=== PATIENT | male | born 1955 | race Two or more races ===

== ENCOUNTER 2017-03-15 08:39 | Inpatient (IN) | payer BC ==
[~2017-03-15] VITALS: Ht 167.6 cm; Wt 74.4 kg
[2017-03-15 09:20] LABS: Basophils # (auto) 0 uL; Basophils % (auto) 0.6 % (0.0-2.0); CONDITION Y; Eosinophils # (auto) 0.2 uL; Eosinophils % (auto) 4.5 % (0.0-7.0); Hematocrit 48.2 % (41.0-53.0); Hemoglobin 16.1 g/dL (13.5-17.5); Lymphocytes # (auto) 1.1 uL; Lymphocytes % (auto) 19.8 % (10.0-50.0); Mean Corpuscular Hgb Conc. 33.3 g/dL (32.0-36.0); Mean Platelet Volume 7.1 fL (7.4-10.4); Monocytes # (auto) 0.5 uL; Monocytes % (auto) 8.4 % (0.0-12.0); Neutrophils # (auto) 3.6 uL; Neutrophils % (auto) 66.7 % (37.0-80.0); Platelet Count (auto) 272 10^3/uL (140-450); Red Cell Distribution Width 13.6 % (11.6-16.0); White Blood Cell 5.4 10^3/uL (4.4-10.8)
[2017-03-15 09:27] LABS: Urine Bilirubin Negative (Negative); Urine Blood Negative /uL (Negative); Urine Color Yellow (Yellow); Urine Glucose 4+ mg/dL (Normal); Urine Ketone TRACE (Negative); Urine Nitrite Negative (Negative); Urine RBC 1 /hpf (0 - 3); Urine Squamous Epithelial Cell FEW /hpf (<5); Urine Urobilinogen Normal (Negative); Urine pH 5.5 (5.0-8.0)
[2017-03-15 09:53] LABS: Albumin 4.1 g/dL (3.4-5.0); Alkaline Phosphatase 70 U/L (45-117); Anion Gap 12 (5-15); Aspartate Aminotransferase 20 U/L (15-37); BUN/Creatinine Ratio 13.6; Bilirubin, Total 0.5 mg/dL (0.2-1.0); Blood Urea Nitrogen 14 mg/dL (7-18); Calcium 8.8 mg/dL (8.5-10.1); Carbon Dioxide 23 mmol/L (21-32); Chloride 102 mmol/L (98-107); GFR African American 95 mL/min; GFR Non-African American 78 mL/min; Glucose 194 mg/dL (74-106); Magnesium 2.4 mg/dL (1.6-2.6); Potassium 4.4 mmol/L (3.5-5.1); Sodium 137 mmol/L (136-145); Total Protein 7.7 g/dL (6.4-8.2)
[2017-03-15] MEDS ORDERED: LORazepam 0.5 MG TAB PO PRN (12:45)
[2017-03-15] MEDS ORDERED: ZOLPIDEM TARTRATE 5 MG TAB PO PRN (12:45)
[2017-03-15] MEDS ORDERED: ALUM & MAG HYDROX-SIMETH LIQ(MAALOX) 30 ML PO ONE (12:45)
[2017-03-15] MEDS ORDERED: DEXTROSE (50%) 50ML SYRG IV PRN (12:45)
[2017-03-15] MEDS ORDERED: ONDANSETRON HCL 4 MG/2 ML VIAL IV PRN (12:45)
[2017-03-15] MEDS ORDERED: MORPHINE SULF INJ 2 MG/ML SYRINGE 1ML IV PRN ×2 (12:45)
[2017-03-15] MEDS ORDERED: NITROGLYCERIN 0.4 MG SL TAB SL PRN ×2 (12:45)
[2017-03-15] MEDS ORDERED: CLOPIDOGREL BISULFATE 75 MG TAB PO ONE (13:00)
[2017-03-15] MEDS ORDERED: ENALAPRIL MALEATE 2.5 MG TAB PO ONE (13:00)
[2017-03-15] MEDS ORDERED: DOCUSATE SOD 100 MG CAP PO ONE (13:00)
[2017-03-15] MEDS ORDERED: CARVEDILOL 3.125 MG TAB PO ONE (13:00)
[2017-03-15] MEDS ORDERED: ASPirin 81 mg TAB PO ONE (13:00)
[2017-03-15 13:07] LABS: B-Type Natriuretic Peptide 9.53 pg/mL (0-100)
[2017-03-15 13:09] LABS: Temperature: 24.1 C (20.0-25.0)
[2017-03-15] MEDS ORDERED: FAMOTIDINE (10MG/ML) 2ML VL IV ONE (13:45)
[2017-03-15] MEDS: SODIUM CHLOR 0.9% PF (SALINE LOCK) 10ML VIAL IV SCH ×2 (14:02→21:55)
[2017-03-15 15:00] VITALS: BP 104/64
[2017-03-15 15:43] VITALS: BP 104/64
[2017-03-15] MEDS ORDERED: SIMV-8 PO (16:18)
[2017-03-15] MEDS ORDERED: OMEP20CA74 PO (16:19)
[2017-03-15] MEDS ORDERED: LISI2.5T47 PO (16:19)
[2017-03-15] MEDS ORDERED: CANA100T OR (16:21)
[2017-03-15] MEDS ORDERED: METF-370 PO (16:21)
[2017-03-15] MEDS ORDERED: INSU70IN3 SC (16:22)
[2017-03-15 17:00] VITALS: BP 97/60
[2017-03-15] MEDS: InsuLIN REG 1unit/0.01ml Soln (100units/ml) SC SCH ×2 (17:00→22:00)
[2017-03-15] MEDS: ACCU-CHEK COMFORT CURVE STRIP VI SCH ×2 (17:26→21:56)
[2017-03-15] MEDS: INSULIN 70/30 1unit/0.01ml Susp (100units/ml) SC SCH (18:10)
[2017-03-15] MEDS: ACETAMINOPHEN 325 MG TAB PO PRN (20:15)
[2017-03-15 21:38] VITALS: BP 98/60
[2017-03-15] MEDS: ATORVASTATIN 20 MG TAB PO SCH (21:55)
[2017-03-15] MEDS: ENALAPRIL MALEATE 2.5 MG TAB PO SCH (21:56)
[2017-03-15] MEDS ORDERED: CARVEDILOL 3.125 MG TAB PO SCH (22:00)
[2017-03-16 04:34] VITALS: BP 100/63
[2017-03-16 05:47] LABS: Basophils # (auto) 0 uL; Basophils % (auto) 0.5 % (0.0-2.0); CONDITION Y; Eosinophils # (auto) 0.2 uL; Eosinophils % (auto) 3.3 % (0.0-7.0); Hematocrit 45.9 % (41.0-53.0); Lymphocytes # (auto) 1.5 uL; Lymphocytes % (auto) 27.1 % (10.0-50.0); Mean Corpuscular Hemoglobin 27.9 pg (28.0-32.0); Mean Corpuscular Hgb Conc. 32.6 g/dL (32.0-36.0); Mean Corpuscular Volume 85.5 fL (80.0-100.0); Mean Platelet Volume 7.2 fL (7.4-10.4); Monocytes # (auto) 0.6 uL; Monocytes % (auto) 11.6 % (0.0-12.0); Neutrophils # (auto) 3.1 uL; Neutrophils % (auto) 57.5 % (37.0-80.0); Platelet Count (auto) 251 10^3/uL (140-450); Red Cell Distribution Width 13.9 % (11.6-16.0); White Blood Cell 5.4 10^3/uL (4.4-10.8)
[2017-03-16 05:56] LABS: INR 1.02 (0.9-1.15); Prothrombin Time 11.1 sec (9.37-12.3)
[2017-03-16 06:23] LABS: Potassium 4.9 mmol/L (3.5-5.1)
[2017-03-16] MEDS: InsuLIN REG 1unit/0.01ml Soln (100units/ml) SC SCH ×4 (06:23→22:00)
[2017-03-16] MEDS: ACCU-CHEK COMFORT CURVE STRIP VI SCH ×4 (06:23→22:13)
[2017-03-16] MEDS: SODIUM CHLOR 0.9% PF (SALINE LOCK) 10ML VIAL IV SCH ×3 (06:23→22:13)
[2017-03-16 06:28] LABS: Albumin 3.6 g/dL (3.4-5.0); BUN/Creatinine Ratio 14.1; Calcium 8.7 mg/dL (8.5-10.1); Magnesium 2.6 mg/dL (1.6-2.6)
[2017-03-16 06:32] LABS: Bilirubin, Total 0.6 mg/dL (0.2-1.0); Total Protein 6.5 g/dL (6.4-8.2)
[2017-03-16] MEDS: INSULIN 70/30 1unit/0.01ml Susp (100units/ml) SC SCH ×2 (07:47→18:43)
[2017-03-16 08:34] VITALS: BP 94/60
[2017-03-16] MEDS: PANTOPRAZOLE 40 MG TAB PO SCH (09:27)
[2017-03-16] MEDS: ASPirin 81 mg TAB PO SCH (09:28)
[2017-03-16] MEDS: CANAGLIFLOZIN 100 MG PO SCH (09:28)
[2017-03-16] MEDS: DOCUSATE SOD 100 MG CAP PO SCH (09:28)
[2017-03-16] MEDS: ENALAPRIL MALEATE 2.5 MG TAB PO SCH ×2 (09:29→22:13)
[2017-03-16] MEDS: ACETAMINOPHEN 325 MG TAB PO PRN ×2 (09:32→16:36)
[2017-03-16] MEDS ORDERED: PATIENTS OWN MEDICATION PO SCH ×2 (10:00)
[2017-03-16] MEDS ORDERED: CLOPIDOGREL BISULFATE 75 MG TAB PO SCH (10:00)
[2017-03-16] MEDS ORDERED: FAMOTIDINE (10MG/ML) 2ML VL IV SCH (10:00)
[2017-03-16 12:18] VITALS: BP 103/63
[2017-03-16 17:05] VITALS: BP 114/73
[2017-03-16 22:00] VITALS: BP 121/72
[2017-03-16] MEDS: ATORVASTATIN 20 MG TAB PO SCH (22:13)
[2017-03-17] MEDS: ACCU-CHEK COMFORT CURVE STRIP VI SCH ×4 (06:02→22:08)
[2017-03-17] MEDS: InsuLIN REG 1unit/0.01ml Soln (100units/ml) SC SCH ×4 (06:02→22:00)
[2017-03-17] MEDS: SODIUM CHLOR 0.9% PF (SALINE LOCK) 10ML VIAL IV SCH ×3 (06:02→22:07)
[2017-03-17 07:44] LABS: Basophils # (auto) 0 uL; Basophils % (auto) 0.3 % (0.0-2.0); CONDITION Y; Eosinophils # (auto) 0.2 uL; Eosinophils % (auto) 3.1 % (0.0-7.0); Hematocrit 48.3 % (41.0-53.0); Lymphocytes # (auto) 1.4 uL; Lymphocytes % (auto) 23.4 % (10.0-50.0); Mean Corpuscular Hemoglobin 28.3 pg (28.0-32.0); Mean Corpuscular Hgb Conc. 33.2 g/dL (32.0-36.0); Mean Corpuscular Volume 85.3 fL (80.0-100.0); Monocytes # (auto) 0.6 uL; Monocytes % (auto) 9.2 % (0.0-12.0); Neutrophils # (auto) 3.9 uL; Platelet Count (auto) 274 10^3/uL (140-450); Red Cell Distribution Width 13.4 % (11.6-16.0); White Blood Cell 6.2 10^3/uL (4.4-10.8)
[2017-03-17 07:47] LABS: BUN/Creatinine Ratio 15.1; Potassium 4.3 mmol/L (3.5-5.1)
[2017-03-17 08:00] VITALS: BP 111/71
[2017-03-17] MEDS: INSULIN 70/30 1unit/0.01ml Susp (100units/ml) SC SCH ×2 (08:21→17:31)
[2017-03-17 09:00] VITALS: BP 111/71
[2017-03-17] MEDS: CANAGLIFLOZIN 100 MG PO SCH (10:00)
[2017-03-17] MEDS: DOCUSATE SOD 100 MG CAP PO SCH (11:03)
[2017-03-17] MEDS: ASPirin 81 mg TAB PO SCH (11:04)
[2017-03-17] MEDS: PANTOPRAZOLE 40 MG TAB PO SCH (11:04)
[2017-03-17] MEDS: ENALAPRIL MALEATE 2.5 MG TAB PO SCH ×2 (11:05→22:08)
[2017-03-17 12:24] VITALS: BP 107/70
[2017-03-17] MEDS: ACETAMINOPHEN 325 MG TAB PO PRN (16:00)
[2017-03-17 17:12] VITALS: BP 107/62
[2017-03-17 21:00] VITALS: BP 105/67
[2017-03-17] MEDS ORDERED: PANTOPRAZOLE 40 MG TAB PO SCH (22:00)
[2017-03-17] MEDS: ATORVASTATIN 20 MG TAB PO SCH (22:07)
[2017-03-18 05:00] VITALS: BP 96/59
[2017-03-18] MEDS: InsuLIN REG 1unit/0.01ml Soln (100units/ml) SC SCH (05:35)
[2017-03-18] MEDS: SODIUM CHLOR 0.9% PF (SALINE LOCK) 10ML VIAL IV SCH (05:35)
[2017-03-18] MEDS: ACCU-CHEK COMFORT CURVE STRIP VI SCH (05:35)
[2017-03-18 06:32] LABS: INR 1.03 (0.9-1.15); Partial Thromboplastin Time 28.3 sec (22.64-33.71); Prothrombin Time 11.2 sec (9.37-12.3)
[2017-03-18] MEDS: INSULIN 70/30 1unit/0.01ml Susp (100units/ml) SC SCH (08:00)
[2017-03-18] MEDS ORDERED: NALOXONE HCL 0.4 MG/ML VIAL ONE (08:57)
[2017-03-18] MEDS ORDERED: LIDOCAINE VISCOUS 2% 15ML UD ONE (08:57)
[2017-03-18] MEDS ORDERED: SODIUM CHLORIDE LOCK 10 ML ONE (08:57)
[2017-03-18] MEDS ORDERED: FLUMAZENIL 0.1 MG/ML INJ 10ML MDV IV ONE (08:57)
[2017-03-18] MEDS ORDERED: diphenhdrAMINE HCL 50 MG/1 ML VL ONE (08:58)
[2017-03-18 09:00] VITALS: BP 118/76
[2017-03-18] MEDS ORDERED: PANT40T PO (10:58)
[2017-03-18] MEDS: fentaNYL CITRATE 100 MCG/2 ML VL ONE ×2 (12:43→12:46)
[2017-03-18] MEDS: MIDAZOLAM HCL 5 MG/ML-1ML VIAL ONE ×2 (12:43→12:46)
[2017-03-18 13:00] VITALS: BP 122/74
[2017-03-18 14:54] VITALS: BP 105/61
== END 2017-03-18 17:40 | disposition home or self-care (01) | DRG 392 ==
LOC: ER 08:39 → TELE 08:40 → TELE-WESTW 14:53
PROVIDERS: ADMIT Internal Medicine; ATTEND Internal Medicine
PROC: 0DB68ZX Excision of Stomach, Via Natural or Artificial Opening Endoscopic, Diagnostic (ICD-10-PCS; principal; 2017-03-18 12:40)
DX: K29.80 Duodenitis without bleeding (principal); E10.21 Type 1 diabetes mellitus with diabetic nephropathy; I95.9 Hypotension, unspecified; E10.22 Type 1 diabetes mellitus with diabetic chronic kidney disease; K20.9 Esophagitis, unspecified; I12.9 Hypertensive chronic kidney disease with stage 1 through stage 4 chronic kidney disease, or unspecified chronic kidney disease; N18.2 Chronic kidney disease, stage 2 (mild); E66.9 Obesity, unspecified; E78.5 Hyperlipidemia, unspecified; R55 Syncope and collapse; F10.10 Alcohol abuse, uncomplicated; K29.60 Other gastritis without bleeding; Z79.4 Long term (current) use of insulin; I25.2 Old myocardial infarction; Z68.26 Body mass index [BMI] 26.0-26.9, adult
CPT/HCPCS: 36415; 43450; 71020; 80048; 80053; 80061; 81001; 82270; 82962; 83036; 83735; 83880; 84443; 84484; 85025; 85610; 85730; 93005; 96374; 96375; J2250; J2405; J3490

== ENCOUNTER 2017-05-11 23:51 | Emergency (ER) | payer BC ==
[~2017-05-11] VITALS: Ht 167.6 cm; Wt 68.9 kg
[~2017-05-11 23:51] MED LIST: CANA100T OR; INSU70IN3 SC; LISI2.5T47 PO; METF-370 PO; PANT40T PO; SIMV-8 PO
[2017-05-12 00:45] LABS: Basophils # (auto) 0 uL; Basophils % (auto) 0.5 % (0.0-2.0); Eosinophils # (auto) 0.2 uL; Eosinophils % (auto) 2.9 % (0.0-7.0); Hematocrit 46.9 % (41.0-53.0); Hemoglobin 15.6 g/dL (13.5-17.5); Lymphocytes # (auto) 1.5 uL; Lymphocytes % (auto) 20.6 % (10.0-50.0); Mean Corpuscular Hemoglobin 28.2 pg (28.0-32.0); Mean Corpuscular Hgb Conc. 33.2 g/dL (32.0-36.0); Mean Corpuscular Volume 84.7 fL (80.0-100.0); Monocytes # (auto) 0.6 uL; Monocytes % (auto) 8.6 % (0.0-12.0); Neutrophils # (auto) 4.9 uL; Neutrophils % (auto) 67.4 % (37.0-80.0); Platelet Count (auto) 219 10^3/uL (140-450); Red Blood Cells 5.53 10^6/uL (4.5-5.90); Red Cell Distribution Width 13.9 % (11.8-14.3); White Blood Cell 7.2 10^3/uL (4.4-10.8)
[2017-05-12 01:01] LABS: Partial Thromboplastin Time 28.3 sec (22.64-33.71); Prothrombin Time 10.9 sec (9.37-12.3)
[2017-05-12 01:09] LABS: Alanine Aminotransferase 30 U/L (16-61); Albumin 4.3 g/dL (3.4-5.0); Alkaline Phosphatase 84 U/L (45-117); Amylase 133 U/L (25-115); Anion Gap 8 (5-15); Aspartate Aminotransferase 21 U/L (15-37); BUN/Creatinine Ratio 22.8; Bilirubin, Total 0.5 mg/dL (0.2-1.0); Blood Urea Nitrogen 21 mg/dL (7-18); Calcium 9.4 mg/dL (8.5-10.1); Carbon Dioxide 27 mmol/L (21-32); Chloride 102 mmol/L (98-107); GFR African American 108 mL/min; GFR Non-African American 89 mL/min; Glucose 106 mg/dL (74-106); Lipase 319 U/L (73-393); Magnesium 2.3 mg/dL (1.6-2.6); Potassium 4.3 mmol/L (3.5-5.1); Sodium 137 mmol/L (136-145); Total Protein 7.9 g/dL (6.4-8.2)
[2017-05-12 02:06] VITALS: BP 113/65
[2017-05-12 03:00] LABS: Urine Bacteria NONE SEEN /hpf (None Seen); Urine Blood Negative /uL (Negative); Urine Specific Gravity 1.029 (1.001-1.035); Urine WBC 9 /hpf (0 - 3)
[2017-05-12] MEDS ORDERED: LACTULOSE 20Gm/30ML SOLN PO ONE (05:45)
== END 2017-05-12 05:53 | disposition home or self-care (01) ==
LOC: ER 23:54
DX: R07.89 Other chest pain (principal); K59.00 Constipation, unspecified; K29.70 Gastritis, unspecified, without bleeding; E11.9 Type 2 diabetes mellitus without complications; E78.5 Hyperlipidemia, unspecified; I10 Essential (primary) hypertension; Z79.899 Other long term (current) drug therapy
CPT/HCPCS: 36415; 71010; 74176; 80053; 81001; 82150; 83690; 83735; 83880; 84484; 85025; 85610; 85730; 93005

== ENCOUNTER 2021-12-15 01:16 | Inpatient (IN) | payer BC, OTHER ==
[~2021-12-15] VITALS: Ht 167.6 cm; Wt 81.0 kg
[2021-12-15 01:51] LABS: Urine Bacteria NONE SEEN /hpf (None Seen); Urine Blood Negative /uL (Negative); Urine Specific Gravity 1.035 (1.001-1.035); Urine WBC 3 /hpf (0 - 3)
[2021-12-15 02:13] LABS: Basophils # (auto) 0 10 ^3/uL (0-0.2); Basophils % (auto) 0.8 % (0.0-2.0); Eosinophils # (auto) 0.2 10 ^3/uL (0-0.8); Eosinophils % (auto) 3.2 % (0.0-7.0); Hematocrit 43.6 % (41.0-53.0); Hemoglobin 14.5 g/dL (13.5-17.5); Lymphocytes # (auto) 1.6 10 ^3/uL (0.4-5.4); Lymphocytes % (auto) 29.1 % (10.0-50.0); Mean Corpuscular Hemoglobin 27.8 pg (28.0-32.0); Mean Corpuscular Hgb Conc. 33.3 g/dL (32.0-36.0); Mean Corpuscular Volume 83.6 fL (80.0-100.0); Monocytes # (auto) 0.6 10 ^3/uL (0-1.3); Monocytes % (auto) 11.2 % (0.0-12.0); Neutrophils # (auto) 3.1 10 ^3/uL (1.6-8.6); Neutrophils % (auto) 55.7 % (37.0-80.0); Nucleated Red Blood Cells % 0.1 %; Red Blood Cells 5.21 10^6/uL (4.5-5.90); Red Cell Distribution Width 14.7 % (11.8-14.3); White Blood Cell 5.6 10^3/uL (4.4-10.8)
[2021-12-15 02:34] LABS: BUN/Creatinine Ratio 13.1; Magnesium 2.4 mg/dL (1.6-2.6); Potassium 4.3 mmol/L (3.5-5.1)
[2021-12-15 02:36] LABS: Bilirubin, Total 0.6 mg/dL (0.2-1.0); Total Protein 7.4 g/dL (6.4-8.2)
[2021-12-15] MEDS ORDERED: DEXTROSE (50%) 50ML SYRG IV PRN (11:15)
[2021-12-15] MEDS ORDERED: NITROGLYCERIN 0.4 MG SL TAB SL PRN (11:15)
[2021-12-15] MEDS ORDERED: MORPHINE SULFATE INJ 2 MG/ml SYRG IV PRN (11:15)
[2021-12-15] MEDS: ACCU-CHEK COMFORT CURVE STRIP VI SCH ×3 (11:30→22:01)
[2021-12-15 12:34] LABS: Cholesterol 168 mg/dL (< 200)
[2021-12-15 12:36] LABS: HDL Cholesterol 43 mg/dL (40-59); LDL Cholesterol 112 mg/dL (< 100); Triglycerides 135 mg/dL (< 150)
[2021-12-15] MEDS: InsuLIN REG 1unit/0.01ml Soln (100units/ml) SC SCH ×2 (14:49→17:00)
[2021-12-15] MEDS ORDERED: ASPirin 81 mg TAB PO ONE (18:45)
[2021-12-15 22:00] VITALS: BP 117/66
[2021-12-15] MEDS ORDERED: InsuLIN REG 1unit/0.01ml Soln (100units/ml) SC SCH (22:00)
[2021-12-16 05:00] VITALS: BP 106/50
[2021-12-16] MEDS: InsuLIN REG 1unit/0.01ml Soln (100units/ml) SC SCH ×4 (06:10→22:13)
[2021-12-16] MEDS: ACCU-CHEK COMFORT CURVE STRIP VI SCH ×4 (06:14→22:13)
[2021-12-16 06:47] LABS: Basophils # (auto) 0.1 10 ^3/uL (0-0.2); Eosinophils # (auto) 0.2 10 ^3/uL (0-0.8); Eosinophils % (auto) 4.2 % (0.0-7.0); Hematocrit 41.6 % (41.0-53.0); Hemoglobin 13.9 g/dL (13.5-17.5); Lymphocytes # (auto) 1.5 10 ^3/uL (0.4-5.4); Lymphocytes % (auto) 27.9 % (10.0-50.0); Mean Corpuscular Hemoglobin 27.9 pg (28.0-32.0); Mean Corpuscular Hgb Conc. 33.5 g/dL (32.0-36.0); Mean Corpuscular Volume 83.2 fL (80.0-100.0); Monocytes # (auto) 0.6 10 ^3/uL (0-1.3); Monocytes % (auto) 11.8 % (0.0-12.0); Neutrophils # (auto) 2.9 10 ^3/uL (1.6-8.6); Neutrophils % (auto) 55.1 % (37.0-80.0); Nucleated Red Blood Cells % 0.1 %; Red Blood Cells 4.99 10^6/uL (4.5-5.90); Red Cell Distribution Width 14.5 % (11.8-14.3); White Blood Cell 5.2 10^3/uL (4.4-10.8)
[2021-12-16 07:05] LABS: Potassium 4.1 mmol/L (3.5-5.1)
[2021-12-16 07:10] LABS: Albumin 3.5 g/dL (3.4-5.0); BUN/Creatinine Ratio 14.4; Bilirubin, Total 0.9 mg/dL (0.2-1.0); Calcium 8.6 mg/dL (8.5-10.1); Total Protein 6.7 g/dL (6.4-8.2)
[2021-12-16 09:00] VITALS: BP 122/73
[2021-12-16] MEDS ORDERED: DEXTROSE (50%) 50ML SYRG IV PRN (09:45)
[2021-12-16] MEDS ORDERED: ENOXAPARIN SOD 40 MG/0.4 ML SYRINGE SC SCH (10:00)
[2021-12-16] MEDS: PANTOPRAZOLE 40 MG TAB PO SCH (10:58)
[2021-12-16] MEDS: ASPirin 81 mg TAB PO SCH (10:58)
[2021-12-16 13:00] VITALS: BP 114/65
[2021-12-16 17:00] VITALS: BP 119/70
[2021-12-16 22:00] VITALS: BP 101/61
[2021-12-16] MEDS ORDERED: ATORVASTATIN 20 MG TAB PO SCH (22:00)
[2021-12-17] VITALS (7 sets, daily range): BP systolic 88–119; BP diastolic 49–76
[2021-12-17] MEDS: ACCU-CHEK COMFORT CURVE STRIP VI SCH ×3 (06:07→18:04)
[2021-12-17] MEDS: InsuLIN REG 1unit/0.01ml Soln (100units/ml) SC SCH ×3 (06:09→18:10)
[2021-12-17] MEDS ORDERED: ADENOSINE 68 MG in GIVE UN-DILUTED 0 ML IV ONE (09:30)
[2021-12-17] MEDS: ASPirin 81 mg TAB PO SCH (11:52)
[2021-12-17] MEDS: PANTOPRAZOLE 40 MG TAB PO SCH (11:52)
== END 2021-12-17 20:06 | disposition home or self-care (01) | DRG 303 ==
LOC: ER 01:16 → TELE 11:07 → TELE-CENTR 22:50
PROVIDERS: ADMIT Registered Nurse; ATTEND Internal Medicine
DX: I25.10 Atherosclerotic heart disease of native coronary artery without angina pectoris (principal); E11.22 Type 2 diabetes mellitus with diabetic chronic kidney disease; N18.2 Chronic kidney disease, stage 2 (mild); E78.5 Hyperlipidemia, unspecified; E11.65 Type 2 diabetes mellitus with hyperglycemia; E66.9 Obesity, unspecified; Z20.822 Contact with and (suspected) exposure to COVID-19; K21.9 Gastro-esophageal reflux disease without esophagitis; R07.89 Other chest pain; Z79.4 Long term (current) use of insulin; Z79.84 Long term (current) use of oral hypoglycemic drugs; Z82.49 Family history of ischemic heart disease and other diseases of the circulatory system; Z83.3 Family history of diabetes mellitus; Z68.28 Body mass index [BMI] 28.0-28.9, adult; I12.9 Hypertensive chronic kidney disease with stage 1 through stage 4 chronic kidney disease, or unspecified chronic kidney disease
CPT/HCPCS: 36415; 71045; 78452; 80053; 80061; 81001; 82962; 83036; 83735; 84484; 85025; 85652; 86141; 93005; 93017; 93306; G0378; J0153; J1815

== ENCOUNTER → 2023-03-17 | Outpatient (CLI) | payer OTHER ==
[~2023-03-17] MED LIST changes: -SIMV-8 PO; +SIMV20TA20 PO
[2023-03-17 10:12] LABS: Basophils # (auto) 0 10 ^3/uL (0-0.2); Basophils % (auto) 0.8 % (0.0-2.0); Eosinophils # (auto) 0.3 10 ^3/uL (0-0.8); Eosinophils % (auto) 6.6 % (0.0-7.0); Hematocrit 43.6 % (41.0-53.0); Hemoglobin 14.4 g/dL (13.5-17.5); Lymphocytes # (auto) 1.3 10 ^3/uL (0.4-5.4); Lymphocytes % (auto) 25.2 % (10.0-50.0); Mean Corpuscular Hemoglobin 27.9 pg (28.0-32.0); Mean Corpuscular Volume 84.4 fL (80.0-100.0); Monocytes # (auto) 0.8 10 ^3/uL (0-1.3); Monocytes % (auto) 14.5 % (0.0-12.0); Neutrophils # (auto) 2.8 10 ^3/uL (1.6-8.6); Neutrophils % (auto) 52.9 % (37.0-80.0); Nucleated Red Blood Cells % 0.1 %; Red Blood Cells 5.17 10^6/uL (4.5-5.90); Red Cell Distribution Width 14.6 % (11.8-14.3); White Blood Cell 5.2 10^3/uL (4.4-10.8)
[2023-03-17 10:31] LABS: Urine Bacteria NONE SEEN /hpf (None Seen); Urine Blood Negative /uL (Negative); Urine Clarity Clear (Clear); Urine Color Yellow (Yellow); Urine Mucus FEW (None Seen); Urine Protein, UAD Negative (Negative); Urine Specific Gravity 1.019 (1.001-1.035); Urine Urobilinogen Normal (Negative); Urine WBC 2 /hpf (0 - 3); Urine pH 5.5 (5.0-8.0)
[2023-03-17 10:37] LABS: Chloride 106 mmol/L (98-107); Potassium 4.6 mmol/L (3.5-5.1); Sodium 140 mmol/L (136-145)
[2023-03-17 10:38] LABS: Anion Gap 6.6 (5-15); Carbon Dioxide 27.4 mmol/L (20-30)
[2023-03-17 10:39] LABS: Calcium 9.2 mg/dL (8.5-10.1)
[2023-03-17 10:43] LABS: Glucose 226 mg/dL (74-106)
[2023-03-17 10:44] LABS: BUN/Creatinine Ratio 11.6 (10.0-20.0); Blood Urea Nitrogen 11 mg/dL (9-23)
[2023-03-18 08:06] LABS: PSA Free 2.07 ng/mL; Prostate Specific Antigen 8.3 ng/mL (0.0-4.0)
== END | disposition home or self-care (01) ==
LOC: LAB 09:51
PROVIDERS: ATTEND Student in an Organized Health Care Education/Training Program
DX: I10 Essential (primary) hypertension (principal); E11.9 Type 2 diabetes mellitus without complications; N40.0 Benign prostatic hyperplasia without lower urinary tract symptoms
CPT/HCPCS: 36415; 80048; 81001; 83036; 84153; 84154; 85025

== ENCOUNTER 2023-04-20 11:32 | Emergency (ER) | payer OTHER ==
[~2023-04-20] VITALS: Ht 167.6 cm; Wt 75.1 kg
[2023-04-20 13:16] VITALS: BP 119/69; PULSE 77; RESP 18; TEMP 98.3; O2SAT 96
[2023-04-20] MEDS ORDERED: DexAMETHasone SOD PHOS 10MG/1ML VIAL INJ IM ONE (14:15)
[2023-04-20] MEDS ORDERED: KETOROLAC TROMETH 60MG/2ML VIAL IM ONE (14:15)
[2023-04-20 15:00] LABS: Rapid Strep A Screen-Throat Negative
[2023-04-20 15:12] LABS: COVID19 ANTIGEN SOFIA FIA NEGATIVE (NEGATIVE); Rapid Influenza A Negative (Negative); Rapid Influenza B Negative (Negative)
[2023-04-20] MEDS ORDERED: ACET500T58 PO (15:21)
[2023-04-20] MEDS ORDERED: LORA10CA PO (15:21)
[2023-04-20] MEDS ORDERED: IBUP-1455 PO (15:21)
== END 2023-04-20 15:26 | disposition home or self-care (01) ==
LOC: ER 11:32
DX: J06.9 Acute upper respiratory infection, unspecified (principal); B97.89 Other viral agents as the cause of diseases classified elsewhere; R53.1 Weakness; E11.9 Type 2 diabetes mellitus without complications; E78.5 Hyperlipidemia, unspecified; I10 Essential (primary) hypertension; Z79.899 Other long term (current) drug therapy; Z20.822 Contact with and (suspected) exposure to COVID-19
CPT/HCPCS: 36415; 87070; 87426; 87804; 87880; 96372; 99284; J1100; J1885

== ENCOUNTER 2023-05-20 14:04 | Day surgery (SDC) | payer OTHER ==
[2023-05-18 11:30] LABS: Basophils # (auto) 0 10 ^3/uL (0-0.2); Basophils % (auto) 0.7 % (0.0-2.0); Eosinophils # (auto) 0.3 10 ^3/uL (0-0.8); Eosinophils % (auto) 6.2 % (0.0-7.0); Hematocrit 43.2 % (41.0-53.0); Hemoglobin 14.2 g/dL (13.5-17.5); Lymphocytes # (auto) 1.8 10 ^3/uL (0.4-5.4); Lymphocytes % (auto) 35.8 % (10.0-50.0); Mean Corpuscular Hgb Conc. 32.8 g/dL (32.0-36.0); Mean Corpuscular Volume 85.3 fL (80.0-100.0); Monocytes # (auto) 0.5 10 ^3/uL (0-1.3); Monocytes % (auto) 10.6 % (0.0-12.0); Neutrophils # (auto) 2.3 10 ^3/uL (1.6-8.6); Neutrophils % (auto) 46.7 % (37.0-80.0); Nucleated Red Blood Cells % 0.1 %; Red Blood Cells 5.07 10^6/uL (4.5-5.90); Red Cell Distribution Width 14.1 % (11.8-14.3); White Blood Cell 4.9 10^3/uL (4.4-10.8)
[2023-05-18 11:51] LABS: INR 1.02 (0.9-1.15); Partial Thromboplastin Time 28.1 SEC (24.5-34.5); Prothrombin Time 10.7 sec (9.3-11.8)
[2023-05-18 11:53] LABS: Alanine Aminotransferase 29 U/L (7-40); Albumin 4.7 g/dL (3.2-4.8); Alkaline Phosphatase 73 U/L (46-116); Anion Gap 8 (5-15); BUN/Creatinine Ratio 7.5 (10.0-20.0); Blood Urea Nitrogen 7 mg/dL (9-23); Calcium 9.7 mg/dL (8.5-10.1); Carbon Dioxide 29 mmol/L (20-30); Chloride 104 mmol/L (98-107); Glucose 245 mg/dL (74-106); Potassium 4.7 mmol/L (3.5-5.1); Sodium 141 mmol/L (136-145)
[2023-05-18 11:54] LABS: Aspartate Aminotransferase 14 U/L (13-40); Bilirubin, Total 0.9 mg/dL (0.2-1.0); Total Protein 7.2 g/dL (5.7-8.2)
[~2023-05-20] VITALS: Ht 167.6 cm; Wt 72.6 kg
[~2023-05-20 14:04] MED LIST changes: +ACET500T58 PO; +ATOR40TA52 PO; -CANA100T OR; +EMPA1TAB3 PO; +GLIP10TA9 PO; -INSU70IN3 SC; -METF-370 PO; +METF-929 PO; -PANT40T PO; -SIMV20TA20 PO; +SODIUM CHLORIDE LOCK 10 ML ONE
[2023-05-20 15:25] VITALS: PULSE 75; RESP 16; O2SAT 100
[2023-05-20] MEDS: fentaNYL CITRATE 100 MCG/2 ML VL ONE ×2 (15:32→15:36)
[2023-05-20] MEDS: MIDAZOLAM HCL 5 MG/ML-1ML VIAL ONE ×2 (15:32→15:36)
[2023-05-20] MEDS: diphenhdrAMINE HCL 50 MG/1 ML VL ONE ×2 (15:32→15:33)
[2023-05-20 15:52] VITALS: PULSE 53; RESP 12; TEMP 98; O2SAT 100
[2023-05-20 17:00] VITALS: BP 117/72; PULSE 55; RESP 14; O2SAT 97
== END 2023-05-20 17:10 | disposition home or self-care (01) ==
LOC: GI 14:04
PROVIDERS: ATTEND Internal Medicine Gastroenterology
DX: R10.9 Unspecified abdominal pain (principal); K63.5 Polyp of colon; K57.30 Diverticulosis of large intestine without perforation or abscess without bleeding; K64.8 Other hemorrhoids; K63.89 Other specified diseases of intestine; E11.9 Type 2 diabetes mellitus without complications; Z98.890 Other specified postprocedural states; Z79.84 Long term (current) use of oral hypoglycemic drugs
CPT/HCPCS: 36415; 45380; 80053; 82962; 85025; 85610; 85730; 88305; J1200; J2250; J3010; J7030; 99152

== ENCOUNTER → 2023-06-03 | Outpatient (CLI) | payer OTHER ==
[~2023-06-03] MED LIST changes: -SODIUM CHLORIDE LOCK 10 ML ONE
[2023-06-03 09:58] LABS: Basophils # (auto) 0 10 ^3/uL (0-0.2); Basophils % (auto) 0.9 % (0.0-2.0); Eosinophils # (auto) 0.3 10 ^3/uL (0-0.8); Eosinophils % (auto) 5.1 % (0.0-7.0); Hematocrit 44.5 % (41.0-53.0); Hemoglobin 14.8 g/dL (13.5-17.5); Lymphocytes # (auto) 1.5 10 ^3/uL (0.4-5.4); Mean Corpuscular Hgb Conc. 33.3 g/dL (32.0-36.0); Mean Corpuscular Volume 84.2 fL (80.0-100.0); Monocytes # (auto) 0.4 10 ^3/uL (0-1.3); Monocytes % (auto) 8.8 % (0.0-12.0); Neutrophils # (auto) 2.9 10 ^3/uL (1.6-8.6); Neutrophils % (auto) 56.2 % (37.0-80.0); Nucleated Red Blood Cells % 0.1 %; Red Blood Cells 5.28 10^6/uL (4.5-5.90); Red Cell Distribution Width 14.1 % (11.8-14.3); White Blood Cell 5.1 10^3/uL (4.4-10.8)
[2023-06-03 10:12] LABS: Urine Bacteria NONE SEEN /hpf (None Seen); Urine Blood Negative /uL (Negative); Urine Clarity Clear (Clear); Urine Color Yellow (Yellow); Urine Protein, UAD Negative (Negative); Urine Specific Gravity 1.023 (1.001-1.035); Urine Urobilinogen Normal (Negative); Urine WBC 2 /hpf (0 - 3)
[2023-06-03 10:34] LABS: Alanine Aminotransferase 31 U/L (7-40); Albumin 4.6 g/dL (3.2-4.8); Alkaline Phosphatase 79 U/L (46-116); Anion Gap 5 (5-15); Aspartate Aminotransferase 20 U/L (13-40); BUN/Creatinine Ratio 10.1 (10.0-20.0); Blood Urea Nitrogen 10 mg/dL (9-23); Calcium 9.8 mg/dL (8.5-10.1); Carbon Dioxide 31 mmol/L (20-30); Chloride 102 mmol/L (98-107); Cholesterol 118 mg/dL (< 200); Glucose 261 mg/dL (74-106); HDL Cholesterol 34 mg/dL (40-59); LDL Cholesterol 68 mg/dL (< 100); Potassium 4.6 mmol/L (3.5-5.1); Sodium 138 mmol/L (136-145); Triglycerides 159 mg/dL (< 150)
[2023-06-03 10:35] LABS: Bilirubin, Total 0.8 mg/dL (0.2-1.0)
== END | disposition home or self-care (01) ==
LOC: LAB 09:41
DX: E11.29 Type 2 diabetes mellitus with other diabetic kidney complication (principal); I10 Essential (primary) hypertension; R97.20 Elevated prostate specific antigen [PSA]
CPT/HCPCS: 36415; 80053; 80061; 81001; 82306; 83036; 85025

== ENCOUNTER → 2023-06-16 | Outpatient (CLI) | payer OTHER ==
[2023-06-16 10:48] LABS: Basophils # (auto) 0 10 ^3/uL (0-0.2); Basophils % (auto) 0.8 % (0.0-2.0); Eosinophils # (auto) 0.3 10 ^3/uL (0-0.8); Eosinophils % (auto) 5.5 % (0.0-7.0); Hematocrit 44.4 % (41.0-53.0); Hemoglobin 14.6 g/dL (13.5-17.5); Lymphocytes # (auto) 1.4 10 ^3/uL (0.4-5.4); Mean Corpuscular Hemoglobin 28.1 pg (28.0-32.0); Mean Corpuscular Hgb Conc. 32.8 g/dL (32.0-36.0); Mean Corpuscular Volume 85.5 fL (80.0-100.0); Monocytes # (auto) 0.5 10 ^3/uL (0-1.3); Neutrophils % (auto) 56.7 % (37.0-80.0); Nucleated Red Blood Cells % 0.1 %; Red Blood Cells 5.19 10^6/uL (4.5-5.90); Red Cell Distribution Width 14.4 % (11.8-14.3); White Blood Cell 5.3 10^3/uL (4.4-10.8)
[2023-06-16 11:12] LABS: Prostate Specific Antigen 5.57 ng/mL (0.0-4.0)
[2023-06-16 11:14] LABS: Urine Bacteria FEW /hpf (None Seen); Urine Blood Negative /uL (Negative); Urine Clarity Clear (Clear); Urine Color Yellow (Yellow); Urine Protein, UAD Negative (Negative); Urine Specific Gravity 1.024 (1.001-1.035); Urine Urobilinogen Normal (Negative); Urine WBC 1 /hpf (0 - 3)
[2023-06-16 11:15] LABS: Alanine Aminotransferase 25 U/L (7-40); Albumin 4.5 g/dL (3.2-4.8); Alkaline Phosphatase 77 U/L (46-116); Anion Gap 6 (5-15); Aspartate Aminotransferase 14 U/L (13-40); BUN/Creatinine Ratio 9.7 (10.0-20.0); Bilirubin, Total 0.6 mg/dL (0.2-1.0); Blood Urea Nitrogen 10 mg/dL (9-23); Calcium 9.7 mg/dL (8.5-10.1); Carbon Dioxide 28 mmol/L (20-30); Chloride 104 mmol/L (98-107); Glucose 249 mg/dL (74-106); Potassium 5.1 mmol/L (3.5-5.1); Sodium 138 mmol/L (136-145); Total Protein 6.8 g/dL (5.7-8.2)
[2023-06-16 11:17] LABS: Free T4 (Free Thyroxine) 0.91 ng/dL (0.89-1.76)
[2023-06-17 08:06] LABS: PSA Free 1.82 ng/mL; Prostate Specific Antigen 5.1 ng/mL (0.0-4.0)
== END | disposition home or self-care (01) ==
LOC: LAB 10:03
PROVIDERS: ATTEND Student in an Organized Health Care Education/Training Program
DX: I10 Essential (primary) hypertension (principal); E11.9 Type 2 diabetes mellitus without complications; R42 Dizziness and giddiness; N40.0 Benign prostatic hyperplasia without lower urinary tract symptoms
CPT/HCPCS: 36415; 80053; 81001; 83036; 84153; 84154; 84439; 84443; 85025

== ENCOUNTER 2023-10-27 07:18 | Day surgery (SDC) | payer OTHER ==
[2023-10-23 09:45] LABS: Urine Bacteria None Seen /hpf (None Seen)
[2023-10-23 09:58] LABS: Basophils # (auto) 0 10 ^3/uL (0-0.2); Basophils % (auto) 0.7 % (0.0-2.0); Eosinophils # (auto) 0.3 10 ^3/uL (0-0.8); Eosinophils % (auto) 4.4 % (0.0-7.0); Hematocrit 43.9 % (41.0-53.0); Hemoglobin 14.2 g/dL (13.5-17.5); Lymphocytes # (auto) 1.5 10 ^3/uL (0.4-5.4); Lymphocytes % (auto) 24.5 % (10.0-50.0); Mean Corpuscular Hemoglobin 27.7 pg (28.0-32.0); Mean Corpuscular Hgb Conc. 32.4 g/dL (32.0-36.0); Mean Corpuscular Volume 85.3 fL (80.0-100.0); Monocytes # (auto) 0.6 10 ^3/uL (0-1.3); Neutrophils # (auto) 3.6 10 ^3/uL (1.6-8.6); Neutrophils % (auto) 60.4 % (37.0-80.0); Red Blood Cells 5.15 10^6/uL (4.5-5.90); Red Cell Distribution Width 14.2 % (11.8-14.3)
[2023-10-23 10:25] LABS: Urine Blood Negative /uL (Negative); Urine Budding Yeast OCCASIONAL /hpf (None Seen); Urine Clarity Clear (Clear); Urine Color Light-Yellow (Yellow); Urine Hyaline Cast FEW /lpf (0 - 2); Urine Protein, UAD Negative (Negative); Urine Urobilinogen Normal (Negative); Urine WBC 3 /hpf (0 - 3)
[2023-10-23 10:38] LABS: Alanine Aminotransferase 26 U/L (7-40); Albumin 4.8 g/dL (3.2-4.8); Alkaline Phosphatase 61 U/L (46-116); Anion Gap 10 (5-15); Aspartate Aminotransferase 21 U/L (13-40); BUN/Creatinine Ratio 11.4 (10.0-20.0); Blood Urea Nitrogen 10 mg/dL (9-23); Calcium 10.1 mg/dL (8.5-10.1); Carbon Dioxide 25 mmol/L (20-30); Chloride 105 mmol/L (98-107); Glucose 107 mg/dL (74-106); Potassium 4.6 mmol/L (3.5-5.1); Sodium 140 mmol/L (136-145)
[2023-10-23 10:39] LABS: Bilirubin, Total 0.7 mg/dL (0.2-1.0); Total Protein 7.3 g/dL (5.7-8.2)
[2023-10-23 10:42] LABS: INR 1.04 (0.9-1.15); Partial Thromboplastin Time 32.2 SEC (24.5-34.5); Prothrombin Time 10.9 sec (9.3-11.8)
[~2023-10-27] VITALS: Ht 167.6 cm; Wt 72.6 kg
[~2023-10-27 07:18] MED LIST changes: +TAMS0.4C36 PO; +TRAZ-228 PO
[2023-10-27] MEDS ORDERED: ceFAZolin 2 GM/D5W50ml 50 ML IV ONE (07:23)
[2023-10-27] MEDS ORDERED: EPINEPHrine HCL 1 MG/1 ML AMP ONE ×3 (07:27→10:58)
[2023-10-27] MEDS ORDERED: BUPIVACAINE HCL 50 ML ONE (07:27)
[2023-10-27] MEDS ORDERED: DexAMETHasone SOD PHOS 4 MG/1ML SDV INJ ONE (07:36)
[2023-10-27] MEDS ORDERED: ACETAMINOPHEN IV 100 ML IV ONE (07:40)
[2023-10-27] MEDS ORDERED: CELECOXIB 100 MG CAP ONE (07:40)
[2023-10-27] MEDS ORDERED: GABAPENTIN 400 MG CAP ONE (07:40)
[2023-10-27] MEDS: CELECOXIB 100 MG CAP PO ONE (07:45)
[2023-10-27] MEDS: ACETAMINOPHEN IV 1000 MG/100ML (10MG/ML) IV ONE (07:45)
[2023-10-27] MEDS: GABAPENTIN 400 MG CAP PO ONE (07:45)
[2023-10-27] MEDS ORDERED: ONDANSETRON HCL 4 MG/2 ML VIAL ONE (08:51)
[2023-10-27] MEDS ORDERED: KETAMINE 50mg/ML 1ml syringe ONE (08:51)
[2023-10-27] MEDS ORDERED: GLYCOPYRROLATE 0.2 MG/ML 1ML VIAL ONE (08:51)
[2023-10-27] MEDS ORDERED: LIDOCAINE 2% (LOCAL ANESTH.) PF 5ml SDV ONE (08:51)
[2023-10-27] MEDS ORDERED: DexAMETHasone SOD PHOS 10MG/1ML VIAL INJ ONE (08:51)
[2023-10-27] MEDS ORDERED: SUGAMMADEX 200mg/2ml Vial (100MG/ML) IV ONE (08:51)
[2023-10-27] MEDS ORDERED: PROPOFOL 10 MG/ML 20 ML IV ONE (08:51)
[2023-10-27] MEDS ORDERED: ROCURONIUM 10MG/ML 10ML VIAL IV ONE (08:51)
[2023-10-27] MEDS ORDERED: KETOROLAC TROMETH 30 MG/ML 1ML VIAL ONE (08:51)
[2023-10-27] MEDS ORDERED: fentaNYL CITRATE 100 MCG/2 ML VL ONE (08:52)
[2023-10-27] MEDS: EPINEPHrine HCL 1 MG/1 ML AMP ONE (09:13)
[2023-10-27] MEDS ORDERED: PHENYLEPHRINE HCL 10 MG/ML VL ONE (09:29)
[2023-10-27] MEDS ORDERED: SODIUM CHLORIDE LOCK 10 ML ONE (09:29)
[2023-10-27] MEDS ORDERED: ESMOLOL HCL 10 ML IV ONE (09:36)
[2023-10-27] MEDS ORDERED: TRANEXAMIC ACID 20 ML ONE (09:47)
[2023-10-27] MEDS ORDERED: HYDR1TAB97 PO (11:17)
[2023-10-27 11:23] VITALS: O2SAT 100
[2023-10-27] MEDS ORDERED: CEPH500C PO (11:30)
[2023-10-27] MEDS ORDERED: ASPI-498 OR (11:30)
[2023-10-27] MEDS: HYDROmorphone HCL 2 MG/ML VL/or syr IV PRN (11:40)
[2023-10-27] MEDS ORDERED: HYDROmorphone HCL 2 MG/ML VL/or syr ONE (11:40)
[2023-10-27] MEDS ORDERED: NALOXONE HCL 0.4 MG/ML VIAL IV PRN (11:45)
[2023-10-27] MEDS ORDERED: ePHEDrine SULFATE 50 MG/ML AMP IV PRN (11:45)
[2023-10-27] MEDS ORDERED: FLUMAZENIL 0.1 MG/ML INJ 10ML MDV IV PRN (11:45)
[2023-10-27] MEDS ORDERED: fentaNYL CITRATE 100 MCG/2 ML VL IV PRN (11:45)
[2023-10-27] MEDS ORDERED: LABETALOL HCL 5 MG/ML 4ML SYRINGE IV PRN (11:45)
[2023-10-27] MEDS ORDERED: ONDANSETRON HCL 4 MG/2 ML VIAL IV PRN (11:45)
[2023-10-27] MEDS ORDERED: hydrALAZINE HCL 20 MG/ML VL IV PRN (11:45)
[2023-10-27] MEDS: oxyCODONE HCL 5MG TAB PO PRN (12:18)
[2023-10-27 12:40] VITALS: BP 152/90; PULSE 81; RESP 12; O2SAT 94
== END 2023-10-27 13:00 | disposition home or self-care (01) ==
LOC: SUR 07:18
PROVIDERS: ATTEND Orthopaedic Surgery Sports Medicine
DX: M75.102 Unspecified rotator cuff tear or rupture of left shoulder, not specified as traumatic (principal); S46.212A Strain of muscle, fascia and tendon of other parts of biceps, left arm, initial encounter; X58.XXXA Exposure to other specified factors, initial encounter; Y93.89 Activity, other specified; Y92.89 Other specified places as the place of occurrence of the external cause; Y99.8 Other external cause status; I10 Essential (primary) hypertension; I20.9 Angina pectoris, unspecified; E78.5 Hyperlipidemia, unspecified; E11.9 Type 2 diabetes mellitus without complications; K21.9 Gastro-esophageal reflux disease without esophagitis; E66.3 Overweight; Z68.25 Body mass index [BMI] 25.0-25.9, adult; Z79.82 Long term (current) use of aspirin; Z79.84 Long term (current) use of oral hypoglycemic drugs; Z79.01 Long term (current) use of anticoagulants; Z79.899 Other long term (current) drug therapy; Z98.890 Other specified postprocedural states; Z87.891 Personal history of nicotine dependence
CPT/HCPCS: 29826; 29827; 29828; 36415; 80053; 81001; 82962; 83036; 85025; 85610; 85730; C1713; J0131; J0171; J0690; J1100; J1170; J1885; J2001; J2371; J2405; J2704; J3010; J3490; A4565

== ENCOUNTER → 2023-11-17 | Outpatient (CLI) | payer OTHER ==
[~2023-11-17] MED LIST changes: +ASPI-498 OR; +CEPH500C PO; +HYDR1TAB97 PO
[2023-11-17 09:51] LABS: Urine Bacteria None Seen /hpf (None Seen)
[2023-11-17 10:01] LABS: Basophils # (auto) 0 10 ^3/uL (0-0.2); Basophils % (auto) 0.7 % (0.0-2.0); Eosinophils # (auto) 0.2 10 ^3/uL (0-0.8); Eosinophils % (auto) 3.9 % (0.0-7.0); Hematocrit 40.8 % (41.0-53.0); Hemoglobin 13.4 g/dL (13.5-17.5); Lymphocytes # (auto) 1.3 10 ^3/uL (0.4-5.4); Lymphocytes % (auto) 23.5 % (10.0-50.0); Mean Corpuscular Hemoglobin 27.7 pg (28.0-32.0); Mean Corpuscular Hgb Conc. 32.8 g/dL (32.0-36.0); Mean Corpuscular Volume 84.6 fL (80.0-100.0); Monocytes # (auto) 0.6 10 ^3/uL (0-1.3); Monocytes % (auto) 9.8 % (0.0-12.0); Neutrophils # (auto) 3.6 10 ^3/uL (1.6-8.6); Neutrophils % (auto) 62.1 % (37.0-80.0); Nucleated Red Blood Cells % 0.1 %; Red Blood Cells 4.82 10^6/uL (4.5-5.90); Red Cell Distribution Width 14.3 % (11.8-14.3); White Blood Cell 5.7 10^3/uL (4.4-10.8)
[2023-11-17 10:15] LABS: Urine Blood Negative /uL (Negative); Urine Clarity Clear (Clear); Urine Color Light-Yellow (Yellow); Urine Mucus FEW (None Seen); Urine Protein, UAD Negative (Negative); Urine Urobilinogen Normal (Negative); Urine WBC 1 /hpf (0 - 3)
[2023-11-17 10:27] LABS: Alanine Aminotransferase 17 U/L (7-40); Albumin 4.5 g/dL (3.2-4.8); Alkaline Phosphatase 63 U/L (46-116); Anion Gap 7 (5-15); Aspartate Aminotransferase 15 U/L (13-40); BUN/Creatinine Ratio 12.6 (10.0-20.0); Blood Urea Nitrogen 12 mg/dL (9-23); Calcium 9.9 mg/dL (8.5-10.1); Carbon Dioxide 27 mmol/L (20-30); Chloride 105 mmol/L (98-107); Glucose 129 mg/dL (74-106); Sodium 139 mmol/L (136-145); Triglycerides 64 mg/dL (< 150)
[2023-11-17 10:28] LABS: LDL Cholesterol 51 mg/dL (< 100)
[2023-11-17 10:29] LABS: Bilirubin, Total 0.8 mg/dL (0.2-1.0); Cholesterol 103 mg/dL (< 200); HDL Cholesterol 41 mg/dL (40-59)
[2023-11-17 11:45] LABS: Creatinine, Urine 136.01 mg/dL (30.0-125.0)
[2023-11-18 08:06] LABS: PSA Free 2.69 ng/mL; Prostate Specific Antigen 10.5 ng/mL (0.0-4.0)
== END | disposition home or self-care (01) ==
LOC: LAB 09:38
PROVIDERS: ATTEND Student in an Organized Health Care Education/Training Program
DX: N40.0 Benign prostatic hyperplasia without lower urinary tract symptoms (principal); E11.9 Type 2 diabetes mellitus without complications; I10 Essential (primary) hypertension
CPT/HCPCS: 36415; 80053; 80061; 81001; 82043; 82570; 83036; 84153; 84154; 84443; 85025